=== PATIENT | male | born 1935 | race Hispanic/Latino ===

== ENCOUNTER 2019-09-17 09:16 | Emergency (ER) | payer MEDICARE | END 2019-09-17 17:48 | disposition admitted as inpatient to this hospital (09) | LOC: ED 09:16 | DX: R91.8 Other nonspecific abnormal finding of lung field (principal); R07.89 Other chest pain; R06.02 Shortness of breath; R09.1 Pleurisy; I10 Essential (primary) hypertension; E78.00 Pure hypercholesterolemia, unspecified; Z98.890 Other specified postprocedural states; Z79.2 Long term (current) use of antibiotics; Z79.899 Other long term (current) drug therapy | CPT/HCPCS: 36415; 71046; 71250; 78582; 80053; 84484; 85025; 93005; 96374; 96375; 99284; A9540; A9558; J1170; J2270; J2405; Q9967 ==

== ENCOUNTER 2019-10-17 17:23 | Emergency (ER) | payer MEDICARE ==
[2019-10-17 18:42] LABS: Basophils % (Auto) 0.2 % (0.0-1.8); Eosinophils % (Auto) 0.4 % (0.0-4.3); Hematocrit 23.8 % (35.5-45.6); Lymphocytes # (Auto) 0.8 K/mm3 (1.2-5.4); Lymphocytes % (Auto) 10.7 % (13.4-35.0); Mean Corpuscular HGB Conc 34 % (32-34); Mean Corpuscular Volume 99 fl (84-94); Monocytes # (Auto) 0.5 K/mm3 (0.0-0.8); Monocytes % (Auto) 6.3 % (0.0-7.3); Platelet Count 372 K/mm3 (140-440); Red Blood Count 2.42 M/mm3 (3.65-5.03); Red Cell Distribution Width 14.2 % (13.2-15.2)
[2019-10-17 19:08] LABS: Albumin 3.9 g/dL (3.9-5); Calcium 10.8 mg/dL (8.4-10.2)
[2019-10-17 19:33] LABS: Chol/HDL Ratio 2.32 %
[2019-10-17] MEDS ORDERED: SODIUM CHLORIDE 0.9% 1000 ML 1,000 ML IV ONE ×2 (20:30→21:20)
[2019-10-17] MEDS ORDERED: FLUTICASONE PROPIONATE NASAL SPRAY 16 GM NS ONE (20:30)
[2019-10-17] MEDS ORDERED: ALBUTEROL 2.5 MG/3 ML NEBU IH ONE (21:20)
[2019-10-17] MEDS ORDERED: LORazepam 1 MG TAB PO ONE (21:25)
[2019-10-17] MEDS ORDERED: HYDROcodone/ACETAMINOPHEN 5-325 MG TAB PO ONE (22:44)
--- NOTE | 2019-10-17 23:57 | Emergency Department Report ---
ED General Adult HPI - General Chief complaint: Dyspnea/Respdistress Stated complaint: SOB Time Seen by Provider: 10/17/19 18:08 Source: patient Mode of arrival: Wheelchair Limitations: No Limitations - History of Present Illness Initial comments: Patient is a 83-year-old male with a medical history of multiple myeloma who is presenting with chief complaint of shortness of breath. Despite having a normal oxygen saturation the patient states that he cannot breathe. Patient states that having difficulty breathing out of his nose. He denies chest pain cough fever. States his mouth is very dry and he is not had anything to eat or drink in the last 2 days. Patient states he is waiting to hear from his doctor how to treat his multiple myeloma. He states he does have body aches is particularly in his lower back. Patient states he takes hydrocodone for this. Patient is a poor historian. Patient is stating over and over that he cannot breathe however his breathing is not labored and he is talking in complete sentences. Not sure whether the patient actually means that he is short of breath when he is saying that he cannot breathe. Patient was brought in to the emergency department by a friend. The friend told our nurse that no one takes care of him and he was concerned about the patient because he stated he had not eaten or drank anything. Please see below note from our hospitalist. It appears the patient was to be placed on hospice care but this may not have occurred. 1 month ago the patient was seen in our emergency department was initially to be admitted however he was seen by our hospitalist and the following note was made. Assessment and Plan - Patient Problems (1) Metastatic lung cancer (metastasis from lung to other site) Current Visit: Yes Status: Acute Qualifiers: Laterality: left Qualified Code(s): C34.92 - Malignant neoplasm of unspecified part of left bronchus or lung Plan to address problem: Patient elects to have home hospice care, pain control with Roxanol, submental oxygen, and Ativan as needed for agitation. Patient discharged to home hospice under the care of the caregivers non medical. (2) Severe malnutrition Current Visit: Yes Status: Acute Plan to address problem: Increase protein intake, dietary supplementation (3) Advance care planning Current Visit: Yes Status: Acute Plan to address problem: Advanced care planning conducted in ED. Patient is full code, disease education conducted. Patient knowledges understanding and agreement with care plan. Patient reports that he wants to get his affairs in order and make himself DNR, and just "wants to be comfortable". Patient declines further evaluation and treatment for lung cancer. +30 minutes - Related Data Home Medications Medication Instructions Recorded Confirmed Last Taken Pravastatin [Pravachol] 40 mg PO QHS 01/25/15 01/25/15 01/24/15 20:00 Previous Rx's Medication Instructions Recorded Last Taken Type HYDROcodone/APAP 5-325 [Cherokee 1 each PO Q6HR PRN #14 tablet 01/25/15 Unknown Rx 5/325] Penicillin Vk [Veetids TAB] 500 mg PO Q8H #30 tablet 10/27/15 Unknown Rx oxyCODONE /ACETAMINOPHEN [Percocet 1 tab PO Q6HR PRN #20 tablet 10/27/15 Unknown Rx 5/325] LORazepam [Ativan] 0.5 mg PO BID #60 tab 09/17/19 Unknown Rx Morphine Concentrate [MORPHINE 10 mg PO Q4HR PRN #50 ml 09/17/19 Unknown Rx Conc 20 MG/ML ORAL LIQ] Sennosides/Docusate Sodium [Cvs 1 each PO DAILY #15 tablet 09/17/19 Unknown Rx Senna Plus Tablet] oxyCODONE [roxiCODONE] 5 mg PO Q6HR PRN #30 tablet 09/17/19 Unknown Rx Allergies Allergy/AdvReac Type Severity Reaction Status Date / Time No Known Allergies Allergy Unverified 01/25/15 13:37 ED Review of Systems ROS: Stated complaint: SOB Other details as noted in HPI Comment: All other systems reviewed and negative ED Past Medical Hx - Past Medical History Previous Medical History?: Yes Hx Hypertension: Yes Additional medical history: HIGH CHOLESTEROL. MACULAR DEGENERATION - Surgical History Past Surgical History?: Yes Additional Surgical History: HERNIA REPAIR X 2. PROSTATE SURGERY. T & A - Social History Smoking Status: Never Smoker Substance Use Type: None - Medications Home Medications: Home Medications Medication Instructions Recorded Confirmed Last Taken Type HYDROcodone/APAP 5-325 [[place] 1 each PO Q6HR PRN #14 tablet 01/25/15 Unknown Rx 5/325] Pravastatin [Pravachol] 40 mg PO QHS 01/25/15 01/25/15 01/24/15 20:00 History Penicillin Vk [Veetids TAB] 500 mg PO Q8H #30 tablet 10/27/15 Unknown Rx oxyCODONE /ACETAMINOPHEN [Percocet 1 tab PO Q6HR PRN #20 tablet 10/27/15 Unknown Rx 5/325] LORazepam [Ativan] 0.5 mg PO BID #60 tab 09/17/19 Unknown Rx Morphine Concentrate [MORPHINE 10 mg PO Q4HR PRN #50 ml 09/17/19 Unknown Rx Conc 20 MG/ML ORAL LIQ] Sennosides/Docusate Sodium [Cvs 1 each PO DAILY #15 tablet 09/17/19 Unknown Rx Senna Plus Tablet] oxyCODONE [roxiCODONE] 5 mg PO Q6HR PRN #30 tablet 09/17/19 Unknown Rx ED Physical Exam - General Limitations: No Limitations General appearance: alert, anxious - Head Head exam: Present: atraumatic, normocephalic - Eye Eye exam: Present: normal appearance - ENT ENT exam: Present: normal orophraynx, mucous membranes moist - Neck Neck exam: Present: normal inspection - Respiratory Respiratory exam: Present: normal lung sounds bilaterally, chest wall tendernes s. Absent: respiratory distress, wheezes, rales, rhonchi - Cardiovascular Cardiovascular Exam: Present: normal rhythm, tachycardia, normal heart sounds. Absent: systolic murmur, diastolic murmur, rubs, gallop - GI/Abdominal GI/Abdominal exam: Present: soft, normal bowel sounds. Absent: distended, tenderness, guarding, rebound - Rectal Rectal exam: Present: deferred - Extremities Exam Extremities exam: Present: normal inspection - Back Exam Back exam: Present: normal inspection, paraspinal tenderness - Neurological Exam Neurological exam: Present: alert, oriented X3 - Psychiatric Psychiatric exam: Present: normal affect, normal mood - Skin Skin exam: Present: warm, dry, intact, normal color. Absent: rash ED Course Vital Signs 10/17/19 10/17/19 10/17/19 17:29 17:31 20:30 Temperature 98.6 F 98.6 F Pulse Rate 117 H 112 H 95 H Pulse Rate [ Bilateral] Respiratory 18 20 17 Rate Respiratory Rate [Bilateral ] Blood Pressure 178/79 181/84 Blood Pressure 178/79 [Right] O2 Sat by Pulse 94 93 98 Oximetry 10/17/19 10/17/19 10/17/19 20:46 21:00 21:16 Temperature Pulse Rate 104 H 99 H 100 H Pulse Rate [ Bilateral] Respiratory 14 14 11 L Rate Respiratory Rate [Bilateral ] Blood Pressure 181/84 173/83 181/84 Blood Pressure [Right] O2 Sat by Pulse 99 97 99 Oximetry 10/17/19 10/17/19 10/17/19 21:30 21:46 22:00 Temperature Pulse Rate 104 H 102 H 101 H Pulse Rate [ Bilateral] Respiratory 13 10 L 12 Rate Respiratory Rate [Bilateral ] Blood Pressure 181/84 181/84 181/82 Blood Pressure [Right] O2 Sat by Pulse 99 100 99 Oximetry 10/17/19 10/17/19 10/17/19 22:16 22:30 22:46 Temperature Pulse Rate 102 H Pulse Rate [ Bilateral] Respiratory 12 Rate Respiratory Rate [Bilateral ] Blood Pressure 181/82 181/82 Blood Pressure [Right] O2 Sat by Pulse 100 99 99 Oximetry 10/17/19 10/17/19 10/17/19 22:57 23:00 23:12 Temperature Pulse Rate Pulse Rate [ 100 H Bilateral] Respiratory Rate Respiratory 22 Rate [Bilateral ] Blood Pressure 181/82 Blood Pressure [Right] O2 Sat by Pulse 96 100 Oximetry 10/17/19 10/17/19 10/17/19 23:16 23:30 23:46 Temperature Pulse Rate Pulse Rate [ Bilateral] Respiratory Rate Respiratory Rate [Bilateral ] Blood Pressure 181/82 181/82 181/82 Blood Pressure [Right] O2 Sat by Pulse 82 L 100 100 Oximetry 10/18/19 10/18/19 10/18/19 00:00 00:16 00:30 Temperature Pulse Rate 115 H Pulse Rate [ Bilateral] Respiratory 13 Rate Respiratory Rate [Bilateral ] Blood Pressure 175/93 175/93 175/93 Blood Pressure [Right] O2 Sat by Pulse 100 96 94 Oximetry 10/18/19 10/18/19 10/18/19 00:46 01:00 01:16 Temperature Pulse Rate 116 H 117 H 117 H Pulse Rate [ Bilateral] Respiratory 16 14 16 Rate Respiratory Rate [Bilateral ] Blood Pressure 175/93 155/77 175/93 Blood Pressure [Right] O2 Sat by Pulse 92 79 L 94 Oximetry 10/18/19 10/18/19 10/18/19 01:30 01:46 02:00 Temperature Pulse Rate 117 H 117 H 116 H Pulse Rate [ Bilateral] Respiratory 15 13 13 Rate Respiratory Rate [Bilateral ] Blood Pressure 175/93 155/77 156/69 Blood Pressure [Right] O2 Sat by Pulse 94 91 93 Oximetry 10/18/19 10/18/19 10/18/19 02:16 02:30 02:46 Temperature Pulse Rate 117 H 117 H 118 H Pulse Rate [ Bilateral] Respiratory 15 15 19 Rate Respiratory Rate [Bilateral ] Blood Pressure 156/69 156/69 156/69 Blood Pressure [Right] O2 Sat by Pulse 94 Oximetry 10/18/19 10/18/19 10/18/19 03:00 03:16 03:30 Temperature Pulse Rate 116 H 116 H 117 H Pulse Rate [ Bilateral] Respiratory 16 16 16 Rate Respiratory Rate [Bilateral ] Blood Pressure 153/76 153/76 153/76 Blood Pressure [Right] O2 Sat by Pulse Oximetry 10/18/19 10/18/19 10/18/19 03:46 04:00 04:16 Temperature Pulse Rate 116 H 117 H 113 H Pulse Rate [ Bilateral] Respiratory 14 14 16 Rate Respiratory Rate [Bilateral ] Blood Pressure 153/76 140/77 153/76 Blood Pressure [Right] O2 Sat by Pulse Oximetry 10/18/19 10/18/19 10/18/19 04:30 04:46 05:00 Temperature Pulse Rate 111 H 120 H 118 H Pulse Rate [ Bilateral] Respiratory 13 15 19 Rate Respiratory Rate [Bilateral ] Blood Pressure 153/76 153/76 153/76 Blood Pressure [Right] O2 Sat by Pulse Oximetry 10/18/19 10/18/19 10/18/19 05:16 05:30 05:46 Temperature Pulse Rate 111 H 112 H 117 H Pulse Rate [ Bilateral] Respiratory 15 17 18 Rate Respiratory Rate [Bilateral ] Blood Pressure 161/135 161/135 161/135 Blood Pressure [Right] O2 Sat by Pulse 85 100 86 Oximetry 10/18/19 10/18/19 10/18/19 06:00 06:16 06:30 Temperature Pulse Rate 113 H Pulse Rate [ Bilateral] Respiratory Rate Respiratory Rate [Bilateral ] Blood Pressure 153/72 161/135 161/135 Blood Pressure [Right] O2 Sat by Pulse 95 95 91 Oximetry 10/18/19 10/18/19 10/18/19 06:46 07:00 07:16 Temperature Pulse Rate Pulse Rate [ Bilateral] Respiratory Rate Respiratory Rate [Bilateral ] Blood Pressure 153/72 149/73 149/73 Blood Pressure [Right] O2 Sat by Pulse 93 96 94 Oximetry 10/18/19 10/18/19 10/18/19 07:30 07:46 08:00 Temperature Pulse Rate Pulse Rate [ Bilateral] Respiratory Rate Respiratory Rate [Bilateral ] Blood Pressure 149/73 149/73 141/82 Blood Pressure [Right] O2 Sat by Pulse 94 95 95 Oximetry 10/18/19 10/18/19 10/18/19 08:16 08:30 08:46 Temperature Pulse Rate Pulse Rate [ Bilateral] Respiratory Rate Respiratory Rate [Bilateral ] Blood Pressure 141/82 141/82 141/82 Blood Pressure [Right] O2 Sat by Pulse 92 99 97 Oximetry 10/18/19 10/18/19 10/18/19 09:00 09:16 09:30 Temperature Pulse Rate Pulse Rate [ Bilateral] Respiratory Rate Respiratory Rate [Bilateral ] Blood Pressure 150/72 150/72 150/72 Blood Pressure [Right] O2 Sat by Pulse 100 87 90 Oximetry 10/18/19 10/18/19 10/18/19 09:46 10:00 10:16 Temperature Pulse Rate Pulse Rate [ Bilateral] Respiratory Rate Respiratory Rate [Bilateral ] Blood Pressure 150/72 150/72 132/83 Blood Pressure [Right] O2 Sat by Pulse 96 94 Oximetry 10/18/19 10/18/19 10/18/19 10:30 10:46 11:00 Temperature Pulse Rate 111 H 111 H Pulse Rate [ Bilateral] Respiratory 16 17 Rate Respiratory Rate [Bilateral ] Blood Pressure 132/83 132/83 132/83 Blood Pressure [Right] O2 Sat by Pulse 96 96 98 Oximetry 10/18/19 10/18/19 10/18/19 11:16 11:30 11:46 Temperature Pulse Rate 112 H 111 H 120 H Pulse Rate [ Bilateral] Respiratory 13 12 23 Rate Respiratory Rate [Bilateral ] Blood Pressure 132/83 132/83 132/83 Blood Pressure [Right] O2 Sat by Pulse 92 86 94 Oximetry 10/18/19 10/18/19 10/18/19 12:00 12:16 12:30 Temperature Pulse Rate 113 H 116 H Pulse Rate [ Bilateral] Respiratory 18 18 Rate Respiratory Rate [Bilateral ] Blood Pressure 162/67 162/67 162/67 Blood Pressure [Right] O2 Sat by Pulse 99 81 L 100 Oximetry 10/18/19 10/18/19 10/18/19 12:46 13:00 13:16 Temperature Pulse Rate Pulse Rate [ Bilateral] Respiratory Rate Respiratory Rate [Bilateral ] Blood Pressure 162/67 162/67 113/78 Blood Pressure [Right] O2 Sat by Pulse 83 L 81 L 86 Oximetry 10/18/19 13:30 Temperature Pulse Rate Pulse Rate [ Bilateral] Respiratory Rate Respiratory Rate [Bilateral ] Blood Pressure 113/78 Blood Pressure [Right] O2 Sat by Pulse 90 Oximetry - Reevaluation(s) Reevaluation #1: 10/22/19 17:28 JOSE D PINEDO Male : 1935 MedRec# [id number] 10/18/19 11:49 - Electric Scoop Operator Note by LUNA GREEN Acct Num: [id number] : 1935 Patient Age: 83 SW reviewed the chart after contact with Charge Nurse on discharge plan of patient. SW reviewed ER report for patient to determine the reason for consult. SW in reading ER report found that patient had been referred to hospice on his last visit to [facility] on 09/17/19. Dr. Delfin Butcher noted that CM consult placed and H&P faxed by Provider Delfin Butcher to [facility]. SW did not complete hospice referral as provider already completed referral as noted in the ER Report. SW did contact [facility] to confirm receipt of the referral, which has been received and contact made with family. PLAN Patient will discharge home with family Hospice services in place with [facility] Initialized on 10/18/19 11:49 - END OF NOTE ED Medical Decision Making - Lab Data Result diagrams: 10/17/19 18:14 10/18/19 11:42 - Medical Decision Making Patient is yelling over and over that he is dying and that he cannot breathe. Patient is not in any respiratory distress. He was satting 95% on room air. Did place the patient on oxygen to see if this was to calm him down which he did not. Gave the patient Ativan as well as [place] for his lower back pain. Patient does show signs of some mild dehydration compared to his laboratory studies last month his BUN/creatinine have increased. Patient given 2 L of normal saline. Still do not believe the patient meets criteria for inpatient admission at this time however I am concerned that the patient was to be placed on hospice care and may not have follow-through. I did consult for social work is been placed. Have also faxed the patient's face sheet and H&P to [facility]. Information was faxed to [phone]. Critical care attestation.: If time is entered above; I have spent that time in minutes in the direct care of this critically ill patient, excluding procedure time. ED Disposition Clinical Impression: Dehydration, Severe malnutrition, Advance care planning Metastatic cancer to lung Qualifiers: Laterality: unspecified laterality Qualified Code(s): C78.00 - Secondary malignant neoplasm of unspecified lung Disposition: DC-01 TO HOME OR SELFCARE Is pt being admited?: No Does the pt Need Aspirin: No Condition: Stable Additional Instructions: Hospice care as planned Referrals: PRIMARY CAREMD [Primary Care Provider] - 3-5 Days
[2019-10-18 03:36] LABS: Bilirubin,Urine NEG (Negative); Blood,Urine SM (Negative); Color,Urine Straw (Yellow); Mucus,Urine FEW /HPF; Protein,Urine <15 mg/dL mg/dL (Negative); Urobilinogen,Urine < 2.0 mg/dL (<2.0)
[2019-10-18 13:42] VITALS: BP 113/78
== END 2019-10-18 14:25 | disposition home or self-care (01) ==
LOC: ED 17:23
DX: R06.02 Shortness of breath (principal); R06.00 Dyspnea, unspecified; I10 Essential (primary) hypertension; E78.00 Pure hypercholesterolemia, unspecified; Z98.890 Other specified postprocedural states; Z79.899 Other long term (current) drug therapy
CPT/HCPCS: 36415; 71046; 80048; 80053; 80061; 81001; 84100; 84484; 85025; 94640; 99284; J7030; 94644